=== PATIENT | male | born 1985 | race American Indian/Alaskan Native ===

== ENCOUNTER 2021-03-05 17:24 | Emergency (ER) | payer SELFPAY ==
[2021-03-05] MEDS ORDERED: cloNIDine 0.2 MG TAB PO ONE (22:25)
--- NOTE | 2021-03-05 22:31 | Emergency Department Report ---
HPI - General Chief Complaint: High BP Time Seen by Provider: 03/05/21 22:17 - HPI HPI: MSE 1 The patient is a 35-year-old male present with a chief complaint of hypertension. Patient states he was sent from his job secondary to uncontrolled hypertension. Patient states he is never been diagnosed hypertension is not currently on any medication. Patient currently denies complaints including headache, chest pain or shortness of breath stating he feels "fine." ED Past Medical Hx - Past Medical History Previous Medical History?: No - Surgical History Hx Appendectomy: Yes Additional Surgical History: Tonsillectomy - Family History Family history: no significant - Social History Smoking Status: Never Smoker Substance Use Type: None (Denies illicit drug use) - Medications Home Medications: Home Medications Medication Instructions Recorded Confirmed Last Taken Type amLODIPine 5 mg PO DAILY #90 tab 03/05/21 Unknown Rx ED Review of Systems ROS: Stated complaint: BLOOD PRESSURE CHECK Other details as noted in HPI Constitutional: no symptoms reported Eyes: denies: eye pain ENT: denies: throat pain Respiratory: no symptoms reported Cardiovascular: denies: chest pain Endocrine: no symptoms reported Gastrointestinal: denies: abdominal pain Genitourinary: denies: dysuria Musculoskeletal: denies: back pain Neurological: denies: headache Physical Exam - Physical Exam Vital Signs: Vital Signs 03/05/21 19:41 Temperature 98.9 F Pulse Rate 89 Respiratory 20 Rate Blood Pressure 185/118 [Right] O2 Sat by Pulse 99 Oximetry Vital Signs 03/05/21 03/05/21 03/06/21 19:41 22:50 00:14 Temperature 98.9 F 98.9 F Pulse Rate 89 76 84 Respiratory 20 20 Rate Blood Pressure 194/133 Blood Pressure 185/118 148/101 [Right] O2 Sat by Pulse 99 98 Oximetry Physical Exam: GENERAL: The patient is well-developed well-nourished male sitting in chair not appearing to be in acute distress. [] HEENT: Normocephalic. Atraumatic. Extraocular motions are intact. Patient has moist mucous membranes. NECK: Supple. Trachea midline CHEST/LUNGS: Clear to auscultation. There is no respiratory distress noted. HEART/CARDIOVASCULAR: Regular. There is no tachycardia. There is no gallop rub or murmur. ABDOMEN: Abdomen is soft, nontender. Patient has normal bowel sounds. There is no abdominal distention. SKIN: There is no rash. There is no edema. There is no diaphoresis. NEURO: The patient is awake, alert, and oriented. The patient is cooperative. The patient has no focal neurologic deficits. The patient has normal speech. GCS 15 MUSCULOSKELETAL: There is no evidence of acute injury. ED Course Vital Signs 03/05/21 19:41 Temperature 98.9 F Pulse Rate 89 Respiratory 20 Rate Blood Pressure 185/118 [Right] O2 Sat by Pulse 99 Oximetry ED Medical Decision Making - Differential Diagnosis Uncontrolled hypertension Critical care attestation.: If time is entered above; I have spent that time in minutes in the direct care of this critically ill patient, excluding procedure time. ED Disposition Clinical Impression: Uncontrolled hypertension Disposition: HOME / SELF CARE / HOMELESS Is pt being admited?: No Does the pt Need Aspirin: No Condition: Stable Instructions: Managing Your Hypertension, Hypertension, Adult, Hypertension (ED) Additional Instructions: Return to the emergency department should you develop worsening symptoms, inability to tolerate food or liquids, high fever or any other concerns Prescriptions: amLODIPine 5 mg PO DAILY #90 tab Referrals: [facility] [Provider Group] - [place] Time of Disposition: 00:26
[2021-03-06 00:15] VITALS: BP 148/101
== END 2021-03-06 01:11 | disposition home or self-care (01) ==
LOC: ED 17:24
DX: I10 Essential (primary) hypertension (principal)
CPT/HCPCS: 99282